=== PATIENT | male | born 1945 | race Caucasian/White ===

== ENCOUNTER 2020-07-06 06:58 | Day surgery (SDC) | payer MEDICARE ==
[2020-07-06] MEDS ORDERED: Propofol 200 MG/20 ML SDV IV ONE (06:59)
[2020-07-06] MEDS ORDERED: Sodium Chloride 0.9% 10 ML Syringe FLUSH PRN (07:15)
[2020-07-06] MEDS ORDERED: Lactated Ringers 1,000 ML IV SCH (07:15)
--- NOTE | 2020-07-06 08:55 | PCM.OPNOTE ---
- General Post-Op/Procedure Note Date of Surgery/Procedure: 07/06/20 Operative Procedure(s): c scope with biopsy Findings: ascending, transverse, sigmoid and rectal polyp sigmoid diverticulosis Pre Op Diagnosis: screening Post-Op Diagnosis: ascending, transverse, sigmoid and rectal polyp. sigmoid diverticulosis Anesthesia Technique: MAC Primary Surgeon: Jean Keane Anesthesia Provider: Genie Zuleta Pathology: ascending, transverse, sigmoid and rectal polyps Complications: pt did have some emesis. anesthesia reports suctioning 10 ml from mouth. Condition: Good Free Text/Narrative:: see dictation
--- NOTE | 2020-07-06 13:47 | OR ---
DATE OF OPERATION: 07/06/2020 SURGEON: Jean Keane MD PROCEDURE PERFORMED: Colonoscopy with cold forceps biopsy. PREOPERATIVE DIAGNOSIS: Need for screening colonoscope. POSTOPERATIVE DIAGNOSIS: Ascending colon polyp, transverse colon polyp, sigmoid polyp, and rectal polyp, sigmoid diverticulosis. INDICATIONS FOR PROCEDURE: This is a 75-year-old white male who presents for screening colonoscopy. He was offered and accepted same. DESCRIPTION OF OPERATION: After an excellent IV sedation was administered, digital rectal exam was performed. No marked abnormality was noted. The flexible colonoscope was inserted and advanced to the cecum. Prep was excellent. The following findings were noted: Ascending colon, just distal to the cecum, small polypoid lesion, biopsied with cold biopsy forceps and sent for permanent. Transverse colon, at the distal transverse colon, small polyp, approximately 4 mm in size, flat, biopsied with cold biopsy forceps. Photo was also taken. Descending colon unremarkable. Sigmoid, scattered diverticulosis, as well as small polyp, again about 3 mm in size, biopsied and sent for permanent. Rectum, small rectal polyp, biopsied with cold biopsy forceps and sent for permanent. The patient tolerated the procedure well. Results will be sent by letter. /[id number] /MODL
== END 2020-07-06 09:48 | disposition home or self-care (01) ==
LOC: FB.SDS 06:58
PROVIDERS: ATTEND Surgery
DX: Z12.11 Encounter for screening for malignant neoplasm of colon (principal); D12.2 Benign neoplasm of ascending colon; D12.3 Benign neoplasm of transverse colon; D12.5 Benign neoplasm of sigmoid colon; K57.30 Diverticulosis of large intestine without perforation or abscess without bleeding; D12.8 Benign neoplasm of rectum; I10 Essential (primary) hypertension; E78.2 Mixed hyperlipidemia; F33.0 Major depressive disorder, recurrent, mild; E66.01 Morbid (severe) obesity due to excess calories; Z68.41 Body mass index [BMI] 40.0-44.9, adult; Z79.899 Other long term (current) drug therapy
CPT/HCPCS: 00811-QZ; 88305; J2704; J7120

== ENCOUNTER 2021-05-26 11:46 | Emergency (ER) | payer MEDICARE ==
--- NOTE | 2021-05-26 12:57 | EDM.PDOC ---
ED HPI GENERAL MEDICAL PROBLEM - General Chief Complaint: Cardiovascular Problem Stated Complaint: HEART ISSUES Time Seen by Provider: 05/26/21 11:55 Source of Information: Reports: Patient, Family History Limitations: Reports: No Limitations - History of Present Illness INITIAL COMMENTS - FREE TEXT/NARRATIVE: c/o VALLEJO for 4d pt has had VALLEJO when walking across room, no cp, no dyspnea at rest saw PCP who sent him to ED here with had a chemical stress test in [place] ~5y ago, unable to do a treadmill stress test, says he passed denies previous VELEZ or CAD has h/o htn and hyperlipidemia on amlodipine, HCTZ and losartan for RUTH says he was on anther med for BP that was stopped 2w ago by PCP because "it might cause blood clots," does not know the name of this med good appetite/energy, sleeping okay in afib in office with rate 132, no previous afib h/o rheumatic fever at age 8 - Related Data Allergies Allergy/AdvReac Type Severity Reaction Status Date / Time Penicillins Allergy Rash Verified 07/06/20 07:49 Home Meds: Home Meds Furosemide [Lasix] 20 mg PO DAILY 07/02/20 [History] Omeprazole Magnesium [Prilosec] 40 mg PO DAILY 07/02/20 [History] amLODIPine Besylate [Norvasc] 5 mg PO DAILY 07/02/20 [History] atorvaSTATin [Lipitor] 10 mg PO DAILY 07/02/20 [History] buPROPion [Wellbutrin SR] 150 mg PO DAILY 07/02/20 [History] hydroCHLOROthiazide [Hydrochlorothiazide] 25 mg PO DAILY 07/02/20 [History] Past Medical History HEENT History: Other HEENT History: ESOPHAGEAL REFLUX Cardiovascular History: Reports: Heart Murmur, High Cholesterol, Hypertension Other Cardiovascular History: RBBB; SCREENING FOR LIPOID DISORDER Respiratory History: Reports: None Gastrointestinal History: Reports: GERD Genitourinary History: Reports: None BUSINESS SUPPORT ASSOCIATE History: Reports: None Other Musculoskeletal History: PAIN IN JOINT SHOULDER REGION Neurological History: Reports: None Psychiatric History: Reports: Depression Endocrine/Metabolic History: Reports: Obesity/BMI 30+ Hematologic History: Reports: None Immunologic History: Reports: None Oncologic (Cancer) History: Reports: None Dermatologic History: Reports: None - Past Surgical History GI Surgical History: Reports: Colonoscopy Musculoskeletal Surgical History: Reports: Knee Replacement Other Musculoskeletal Surgeries/Procedures:: HAMMER TOE OPERATION ONE TOE; RECONSTRUCTION COMP SHOULDER ROTATOR CUFF AVULSION CHRONIC (INC ACROMIOPLASTY) Social & Family History - Caffeine Use Caffeine Use: Reports: Coffee Caffeine Use Comment: PT REPORTS APPROX 1 CUP OF COFFEE A WEEK ED ROS GENERAL - Review of Systems Review Of Systems: See Below Constitutional: Reports: No Symptoms HEENT: Reports: No Symptoms Respiratory: Reports: Shortness of Breath. Denies: Wheezing, Pleuritic Chest Pain, Cough, Sputum Cardiovascular: Reports: Palpitations. Denies: Chest Pain, Edema, Lightheadedness Endocrine: Reports: No Symptoms GI/Abdominal: Reports: No Symptoms : Reports: No Symptoms Musculoskeletal: Reports: No Symptoms Skin: Reports: No Symptoms Neurological: Reports: No Symptoms Psychiatric: Reports: No Symptoms Hematologic/Lymphatic: Reports: No Symptoms Immunologic: Reports: No Symptoms ED EXAM, GENERAL - Physical Exam Exam: See Below Exam Limited By: No Limitations General Appearance: Alert, WD/WN, No Apparent Distress, Other (conversant, good eye contact, no cough/dyspnea, not ill) Eye Exam: Bilateral Eye: EOMI Ears: Hearing Grossly Normal Nose: Normal Inspection Throat/Mouth: Normal Inspection, Normal Lips, Normal Teeth Head: Atraumatic, Normocephalic Neck: Normal Inspection, Supple, Non-Tender, Full Range of Motion. No: Lymphadenopathy (R), Lymphadenopathy (L) Respiratory/Chest: No Respiratory Distress, Lungs Clear, Normal Breath Sounds, Chest Non-Tender Cardiovascular: Regular Rate, Rhythm, Other (trace pretib edema) GI/Abdominal: Normal Bowel Sounds, Soft, Non-Tender, No Distention Back Exam: Normal Inspection, Full Range of Motion. No: CVA Tenderness (R), CVA Tenderness (L) Extremities: Normal Inspection, Normal Range of Motion, Non-Tender Neurological: Alert, Oriented, CN II-XII Intact, Normal Cognition, No Motor/Sensory Deficits Psychiatric: Normal Affect, Normal Mood Skin Exam: Warm, Dry, Intact, Normal Color, No Rash Lymphatic: No Adenopathy Course - Vital Signs Last Recorded V/S: Last Vital Signs Temp 36.8 C 05/26/21 11:46 Pulse 147 H 05/26/21 11:46 Resp 17 05/26/21 11:46 BP 147/101 H 05/26/21 11:46 Pulse Ox 95 05/26/21 11:46 - Orders/Labs/Meds Orders: Active Orders 24 hr Category Date Time Status Chest 1V Frontal [CR] Stat Exams 05/26/21 12:06 Taken UA W/MICROSCOPIC [URIN] Stat Lab 05/26/21 12:06 Ordered Diltiazem 125 mg Med 05/26/21 13:15 Active Sodium Chloride 0.9% [Normal Saline] 100 ml IV TITRATE Medication Orders Diltiazem HCl 125 mg/ Sodium (Chloride) 125 mls @ 5 mls/hr IV TITRATE STONE; Protocol Last Admin: 05/26/21 14:15 Dose: 5 mg/hr, 5 mls/hr Documented by: DIFFCAL Labs: Laboratory Tests 05/26/21 05/26/21 05/26/21 Range/Units 12:20 12:20 12:20 WBC 9.1 (3.2-10.1) x10-3/uL RBC 4.79 (3.90-5.90) x10(6)uL Hgb 14.1 (12.9-17.7) g/dL Hct 41.5 (38.3-50.1) % MCV 86.7 (80.8-98.7) fL MCH 29.4 (27.0-33.3) pg MCHC 33.9 (28.7-35.3) g/dL RDW 13.3 (12.4-15.0) % Plt Count 232 (117-477) x10(3)uL MPV 7.6 (6.7-11.0) fL Neut % (Auto) 76.3 H (40.3-71.8) % Lymph % (Auto) 13.3 L (15.8-45.3) % Stafford % (Auto) 8.6 (5.5-15.2) % Eos % (Auto) 1.5 (0.1-6.8) % Baso % (Auto) 0.3 (0.3-3.8) % Neut # (Auto) 7.0 H (1.7-6.9) x10-3/uL Lymph # (Auto) 1.2 (0.5-4.5) x10-3/uL Stafford # (Auto) 0.8 (0.0-1.2) x10-3/uL Eos # (Auto) 0.1 (0.0-0.6) x10-3/uL Baso # (Auto) 0.0 (0.0-0.3) x10-3/uL Sodium 143 (135-145) mmol/L Potassium 4.6 (3.5-5.3) mmol/L Chloride 103 (100-110) mmol/L Carbon Dioxide 25 (21-32) mmol/L BUN 23 H (7-18) mg/dL Creatinine 1.7 H (0.70-1.30) mg/dL Est Cr Clr Drug Dosing 40.60 mL/min Estimated GFR (MDRD) 39 L (>60) BUN/Creatinine Ratio 13.5 (9-20) Glucose 117 H (80-116) mg/dL Calcium 8.8 (8.6-10.2) mg/dL Magnesium (1.8-2.5) mg/dL Total Bilirubin 0.8 (0.1-1.3) mg/dL AST 20 (5-25) IU/L ALT 32 (12-36) U/L Alkaline Phosphatase 94 (56-112) IU/L Troponin I 27.9 (4.0-60.3) pg/mL C-Reactive Protein 0.6 (0.5-0.9) mg/dL Total Protein 7.4 (6.0-8.0) g/dL Albumin 3.7 (3.2-4.6) g/dL Globulin 3.7 g/dL Albumin/Globulin Ratio 1.0 TSH, Ultra Sensitive 1.71 (0.36-3.74) IU/mL 05/26/21 Range/Units 12:20 WBC (3.2-10.1) x10-3/uL RBC (3.90-5.90) x10(6)uL Hgb (12.9-17.7) g/dL Hct (38.3-50.1) % MCV (80.8-98.7) fL MCH (27.0-33.3) pg MCHC (28.7-35.3) g/dL RDW (12.4-15.0) % Plt Count (117-477) x10(3)uL MPV (6.7-11.0) fL Neut % (Auto) (40.3-71.8) % Lymph % (Auto) (15.8-45.3) % Stafford % (Auto) (5.5-15.2) % Eos % (Auto) (0.1-6.8) % Baso % (Auto) (0.3-3.8) % Neut # (Auto) (1.7-6.9) x10-3/uL Lymph # (Auto) (0.5-4.5) x10-3/uL Stafford # (Auto) (0.0-1.2) x10-3/uL Eos # (Auto) (0.0-0.6) x10-3/uL Baso # (Auto) (0.0-0.3) x10-3/uL Sodium (135-145) mmol/L Potassium (3.5-5.3) mmol/L Chloride (100-110) mmol/L Carbon Dioxide (21-32) mmol/L BUN (7-18) mg/dL Creatinine (0.70-1.30) mg/dL Est Cr Clr Drug Dosing mL/min Estimated GFR (MDRD) (>60) BUN/Creatinine Ratio (9-20) Glucose (80-116) mg/dL Calcium (8.6-10.2) mg/dL Magnesium 1.5 L (1.8-2.5) mg/dL Total Bilirubin (0.1-1.3) mg/dL AST (5-25) IU/L ALT (12-36) U/L Alkaline Phosphatase (56-112) IU/L Troponin I (4.0-60.3) pg/mL C-Reactive Protein (0.5-0.9) mg/dL Total Protein (6.0-8.0) g/dL Albumin (3.2-4.6) g/dL Globulin g/dL Albumin/Globulin Ratio TSH, Ultra Sensitive (0.36-3.74) IU/mL Meds: Medications Generic Name Dose Route Start Last Admin Trade Name Freq PRN Reason Stop Dose Admin Diltiazem HCl 125 mg/ Sodium 125 mls @ 5 mls/hr 05/26/21 13:15 05/26/21 14:15 Chloride IV 5 mg/hr TITRATE STONE 5 mls/hr Administration Protocol 5 MG/HR Discontinued Medications Generic Name Dose Route Start Last Admin Trade Name Abigail PRN Reason Stop Dose Admin Diltiazem HCl 10 mg 05/26/21 13:06 05/26/21 13:12 Diltiazem 25 Mg/5 Ml Sdv IVPUSH 05/26/21 13:07 10 mg ONETIME ONE Administration Enoxaparin Sodium 100 mg 05/26/21 13:04 05/26/21 13:20 Enoxaparin 100 Mg/1 Ml Syringe SUBCUT 05/26/21 13:05 100 mg ONETIME ONE Administration Magnesium Sulfate 2 gm/ Premix 50 mls @ 200 mls/hr 05/26/21 13:00 05/26/21 13:20 IV 05/26/21 13:14 50 mls/hr ONETIME ONE Infusion - Re-Assessments/Exams Free Text/Narrative Re-Assessment/Exam: 05/26/21 13:25 d/w Dr Christopher, hospitalist at [facility], who accepted pt in transfer, bed now available until later this afternoon pt aware CxR 1v is neg on prelim ED view, poor inspiration, angles appear clear no comparison EKG, will try to obtain one from office as well as clinic note from 2w ago when one med stopped pt and agree to transfer will get a lunch tray for pt Mg 1.5, will replace with 2 gm over 1h no h/o CAD per pt, 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, will recheck EKG when rate slower, HR dec'd 135 to 115 after dilt 10 mg IV, dilt drip to be hung given lovenox 1 mg/kg SC 05/26/21 15:07 Mg 2 gm completed, dilt drip begun, HR still 105 to 125, BP stable bed now available at [facility], EMS transfer papers signed, pt ate a turkey sandwich and chicken noodle soup, no sob or sxs at rest\\ EKG not repeated as HR still >100 Departure - Departure Time of Disposition: 15:13 Disposition: DC/Tfer to Acute Hospital 02 Reason for Transfer *Q: Other (cardiology evaluation) Condition: Good Clinical Impression: Atrial fibrillation with RVR, Chronic renal insufficiency, Hypomagnesemia Referrals: Douglas Bro MD [Primary Care Provider] - Forms: ED Department Discharge Sepsis Event Note (ED) - Evaluation Sepsis Screening Result: No Definite Risk - Focused Exam Vital Signs: Vital Signs Temp Pulse Resp BP Pulse Ox 05/26/21 11:46 36.8 C 147 H 17 147/101 H 95 - My Orders Last 24 Hours: My Active Orders 05/26/21 12:06 Chest 1V Frontal [CR] Stat UA W/MICROSCOPIC [URIN] Stat 05/26/21 13:15 Diltiazem 125 mg Sodium Chloride 0.9% [Normal Saline] 100 ml IV TITRATE - Assessment/Plan Last 24 Hours: My Active Orders 05/26/21 12:06 Chest 1V Frontal [CR] Stat UA W/MICROSCOPIC [URIN] Stat 05/26/21 13:15 Diltiazem 125 mg Sodium Chloride 0.9% [Normal Saline] 100 ml IV TITRATE
[2021-05-26] MEDS ORDERED: Magnesium Sulfate/Water 2 GM in Premix Bag 1 BAG IV ONE (13:00)
[2021-05-26] MEDS ORDERED: Enoxaparin 100 MG/1 ML Syringe SUBCUT ONE (13:04)
[2021-05-26] MEDS ORDERED: Diltiazem 25 MG/5 ML SDV IVPUSH ONE (13:06)
[2021-05-26] MEDS ORDERED: Diltiazem 125 MG in Sodium Chloride 0.9% 100 ML IV SCH (13:15)
== END 2021-05-26 16:00 ==
LOC: FB.ED 11:46
DX: I48.91 Unspecified atrial fibrillation (principal); I12.9 Hypertensive chronic kidney disease with stage 1 through stage 4 chronic kidney disease, or unspecified chronic kidney disease; N18.9 Chronic kidney disease, unspecified; E83.42 Hypomagnesemia; E78.00 Pure hypercholesterolemia, unspecified; E66.9 Obesity, unspecified; K21.9 Gastro-esophageal reflux disease without esophagitis; Z68.30 Body mass index [BMI] 30.0-30.9, adult; Z88.0 Allergy status to penicillin; Z79.899 Other long term (current) drug therapy
CPT/HCPCS: 36415; 71045; 80053; 81001; 83735; 84443; 84484; 85025; 86140; 96365; 96366; 96367; 96372; 96376; 99285-25; J1650; J3475; J3490